=== PATIENT | female | born 1945 | race Caucasian/White ===

== ENCOUNTER 2016-10-15 08:03 | Emergency (ER) | payer MEDICARE ==
[2016-10-15 08:19] VITALS: BP 141/59
--- NOTE | 2016-10-15 08:36 | UC ---
Respiratory Complaint HPI - HPI Summary HPI Summary: 71 Y/O female with C/O sinus pressure x 7 days and chest congestion x 2 days, Denies chills, fever, nausea, vomiting or body aches. Non-productive cough, Has been taking OTC cough medicine. - History of Current Complaint Chief Complaint: UCRespiratory Stated Complaint: RESPIRATORY COMPLAINT Time Seen by Provider: 10/15/16 08:12 Hx Obtained From: Patient ?: No Onset/Duration: Gradual Onset, Lasting Days Timing: Constant Severity Initially: Moderate Severity Currently: Moderate Pain Scale Used: 0-10 Numeric Character: Cough: Nonproductive Aggravating Factors: Nothing Alleviating Factors: OTC Meds Associated Signs And Symptoms: Positive: Wheezing, Nasal Congestion, Sinus Discomfort - Risk Factors Pulmonary Embolism Risk Factors: Negative Cardiac Risk Factors: Hypertension Pseudomonas Risk Factors: Chronic Lung Disease Tuberculosis Risk Factors: Negative - Allergies/Home Medications Allergies/Adverse Reactions: Allergies Allergy/AdvReac Type Severity Reaction Status Date / Time No Known Allergies Allergy Verified 10/15/16 08:08 Home Medications: Home Medications Diltiazem XR (NF) [Cartia XR (NF)] 240 mg PO DAILY 10/15/16 [History Confirmed 10/15/16] Fluticasone HFA 220 mcg(NF) [Flovent HFA 220 Mcg(NF)] 1 puff INH BID 10/15/16 [ History Confirmed 10/15/16] Fluticasone NASAL SPRAY 50MCG* [Flonase NASAL SPRAY 50MCG*] 2 spray BOTH NARES DAILY 10/15/16 [History Confirmed 10/15/16] Rivaroxaban TAB(*) [Xarelto 20 mg] 20 mg PO DAILY 10/15/16 [History Confirmed ] PMH/Surg Hx/FS Hx/Imm Hx Cardiovascular History Of: Reports: Cardiac Disorders - afib, Hypertension Respiratory History Of: Reports: Asthma - Surgical History Surgical History: Yes Surgery Procedure, Year, and Place: CARDIAC VALVULAR PLASTY, [place], 10 YEARS AGO, SINUS SURGERY , november,. eye lids. achilles tendon - Social History Alcohol Use: None Substance Use Type: None Smoking Status (MU): Former Smoker When Did the Patient Quit Smoking/Using Tobacco: 35 years ago - Immunization History Most Recent Influenza Vaccination: 2016 Review of Systems Constitutional: Negative Skin: Negative Eyes: Negative ENT: Nasal Discharge Respiratory: Cough Cardiovascular: Negative Gastrointestinal: Negative Genitourinary: Negative Motor: Negative Neurovascular: Negative Musculoskeletal: Negative Neurological: Negative Psychological: Negative All Other Systems Reviewed And Are Negative: Yes Physical Exam Triage Information Reviewed: Yes Appearance: No Pain Distress Vital Signs: Initial Vital Signs Temp 98.1 F 10/15/16 08:14 Pulse 89 10/15/16 08:14 Resp 20 10/15/16 08:14 BP 141/59 10/15/16 08:14 Pulse Ox 97 10/15/16 08:14 Vital Signs Reviewed: Yes Eye Exam: Normal Eyes: Positive: Conjunctiva Clear ENT Exam: Other ENT: Positive: Nasal congestion Dental Exam: Normal Neck exam: Normal Neck: Positive: Supple Respiratory Exam: Normal Respiratory: Positive: No respiratory distress Cardiovascular Exam: Normal Cardiovascular: Positive: RRR Abdominal Exam: Normal Abdomen Description: Positive: Nontender Bowel Sounds: Positive: Present Musculoskeletal Exam: Normal Musculoskeletal: Positive: Strength Intact Neurological Exam: Normal Neurological: Positive: Alert Psychological Exam: Normal Skin Exam: Normal UC Diagnostic Evaluation - Laboratory O2 Sat by Pulse Oximetry: 97 Respiratory Course/Dx - Differential Dx/Diagnosis Differential Diagnosis/HQI/PQRI: Bronchitis, Sinusitis Provider Diagnoses: Upper respiratory infection Discharge - Discharge Plan Condition: Stable Disposition: HOME Patient Education Materials: Upper Respiratory Infection (ED) Additional Instructions: Take Amoxicillan and prednisone if symptoms persist. Mucinex twice daily for 7 days. Please follow up with Primary care provider or return to walk in clinic for worsening symptoms
== END 2016-10-15 09:12 | disposition home or self-care (01) ==
LOC: UCCORT 08:03
DX: J06.9 Acute upper respiratory infection, unspecified (principal); I48.91 Unspecified atrial fibrillation; Z79.01 Long term (current) use of anticoagulants; I10 Essential (primary) hypertension; Z87.891 Personal history of nicotine dependence
CPT/HCPCS: 99212; G0463

== ENCOUNTER 2018-06-17 07:04 | Emergency (ER) | payer MEDICARE ==
[2018-06-17 07:41] VITALS: BP 140/75
--- NOTE | 2018-06-17 08:05 | UC ---
Complaint Female HPI - HPI Summary HPI Summary: 72 yo patient with PMH of asthma, Afib, HLD, HTN GERD IBS on Xarelto c/o lower back, lower abdominal pain along with burning with urination, urinary frequency since yesterday. She also has noticed blood on the tissue paper. She states she was treated for a UTI approx 2 months ago-unsure if it ever fully resolved. Denies fever, chills or flank pain. c/o intermittent diarrhea due to IBS. - History Of Current Complaint Chief Complaint: UCGU Stated Complaint: URINARY Time Seen by Provider: 06/17/18 07:30 Hx Obtained From: Patient ?: No Onset/Duration: Sudden Onset, Lasting Days Timing: Intermittent Severity Initially: Moderate Severity Currently: Severe Pain Intensity: 8 Character: Burning Aggravating Factor(s): Urination Alleviating Factor(s): Nothing Associated Signs And Symptoms: Positive: Negative - Risk Factors Ectopic Risk Factor: Negative - Allergies/Home Medications Allergies/Adverse Reactions: Allergies Allergy/AdvReac Type Severity Reaction Status Date / Time No Known Allergies Allergy Verified 06/17/18 07:41 Home Medications: Home Medications Amiodarone HCl 200 mg PO DAILY 06/17/18 [History Confirmed 06/17/18] Dicyclomine CAP* [Bentyl CAP*] 10 mg PO TID 06/17/18 [History Confirmed 06/17/18 ] Domperidone 10 mg PO TID WITH MEALS 06/17/18 [History Confirmed 06/17/18] Ondansetron ODT TAB* [Zofran 4 MG Odt TAB*] 4 mg PO Q6H PRN 06/17/18 [History Confirmed 06/17/18] PMH/Surg Hx/FS Hx/Imm Hx - Additional Past Medical History Additional PMH: asthma, Afib, HLD, HTN GERD on Xarelto Endocrine History: Dyslipidemia Cardiovascular History: Hypertension, Atrial Fibrillation Respiratory History: Asthma GI/ History: Gastroesophageal Reflux - Surgical History Surgical History: Yes Surgery Procedure, Year, and Place: CARDIAC VALVULAR PLASTY, [place], 10 YEARS AGO, SINUS SURGERY , november,. eye lids. achilles tendon - Family History Known Family History: Positive: None - Social History Alcohol Use: None Substance Use Type: None Smoking Status (MU): Former Smoker Length of Time of Smoking/Using Tobacco: smoker for approx 15 yrs When Did the Patient Quit Smoking/Using Tobacco: 35 years ago - Immunization History Most Recent Influenza Vaccination: 2016 Review of Systems All Other Systems Reviewed And Are Negative: Yes Constitutional: Positive: Negative Genitourinary: Positive: Dysuria Physical Exam Triage Information Reviewed: Yes Appearance: Well-Appearing, No Pain Distress, Well-Nourished Vital Signs: Initial Vital Signs Temp 98.1 F 06/17/18 07:31 Pulse 113 06/17/18 07:31 Resp 18 06/17/18 07:31 BP 140/75 06/17/18 07:31 Pulse Ox 97 06/17/18 07:31 Vital Signs Reviewed: Yes Eyes: Positive: Conjunctiva Clear ENT: Positive: Hearing grossly normal, Pharynx normal Neck: Positive: Supple, Nontender, No Lymphadenopathy Respiratory: Positive: Chest non-tender, Lungs clear, Normal breath sounds, No respiratory distress Cardiovascular: Positive: RRR, No Murmur, Pulses Normal, Brisk Capillary Refill Abdomen Description: Positive: Nontender, No Organomegaly, Soft Bowel Sounds: Positive: Present Musculoskeletal: Positive: Strength Intact, ROM Intact, No Edema Neurological: Positive: Alert Psychological Exam: Normal Skin Exam: Normal Complaint Female Dx - Course Course Of Treatment: History and urinanalysis compatible with UTI, start macrobid and pyridium as prescribed, increase po fluids, f/u with PCP in a week. - Differential Dx/Diagnosis Provider Diagnoses: UTI Discharge - Sign-Out/Discharge Documenting (check all that apply): Patient Departure All imaging exams completed and their final reports reviewed: No Studies - Discharge Plan Condition: Stable Disposition: HOME Patient Education Materials: Phenazopyridine (By mouth), Urinary Tract Infection in Women (ED), Nitrofurantoin Macrocrystals (By mouth) Referrals: Ev Wadsworth MD [Primary Care Provider] - - Billing Disposition and Condition Condition: STABLE Disposition: Home
--- NOTE | 2018-06-19 07:04 | UC ---
- Progress Note Progress Note: + E coli + proteus Pt on Macrobid await sensitivity no change [facility] 06/19 Discharge - Sign-Out/Discharge Documenting (check all that apply): Post-Discharge Follow Up All imaging exams completed and their final reports reviewed: No Studies - Discharge Plan Condition: Stable Disposition: HOME Prescriptions: Nitrofurantoin Monohyd/M-Cryst [Macrobid 100 mg Capsule] 100 mg PO BID 7 Days # 14 cap Phenazopyridine TAB* [Pyridium 100 mg TAB*] 100 mg PO TID PRN #6 tab PRN Reason: Pain Patient Education Materials: Phenazopyridine (By mouth), Nitrofurantoin Macrocrystals (By mouth), Urinary Tract Infection in Women (ED) Referrals: Ev Wadsworth MD [Primary Care Provider] - - Billing Disposition and Condition Condition: STABLE Disposition: Home
== END 2018-06-17 08:22 | disposition home or self-care (01) ==
LOC: UCCORT 07:04
DX: N39.0 Urinary tract infection, site not specified (principal); B96.20 Unspecified Escherichia coli [E. coli] as the cause of diseases classified elsewhere; B96.4 Proteus (mirabilis) (morganii) as the cause of diseases classified elsewhere; I48.91 Unspecified atrial fibrillation; Z79.01 Long term (current) use of anticoagulants; Z87.891 Personal history of nicotine dependence
CPT/HCPCS: 81003; 87077; 87086; 87186; 99212; G0463